=== PATIENT | female | born 1960 | race Two or more races ===

== ENCOUNTER 2017-02-01 07:12 | Day surgery (SDC) | payer MEDICAID ==
--- NOTE | 2017-01-27 16:34 | Pre-Procedure Note/Attestation ---
Pre-Procedure Note/Attestation Complete Prior to Procedure Planned Procedure: right Procedure Narrative: phaco with IOL Indications for Procedure Pre-Operative Diagnosis: cataract Attestation I attest that I discussed the nature of the procedure; its benefits; risks and complications; and alternatives (and the risks and benefits of such alternatives ), prior to the procedure, with the patient (or the patient's legal software support representative). I attest that, if there was a reasonable possibility of needing a blood transfusion, the patient (or the patient's legal software support representative) was given the [facility] standardized written summary, pursuant to the Fernando Lenoir Blood Safety Act ([place] Health and Safety Code # 1645, as amended). I attest that I re-evaluated the patient just prior to the surgery and that there has been no change in the patient's H&P, except as documented below: SHAYLEE HUERTA Jan 27, 2017 16:34
--- NOTE | 2017-01-27 16:45 | Opthalmology H&P ---
Ophthalmology H&P H&P Chief Complaint: decreased vision in right eye HPI Vision Affects Ability to: read, focus/use eyes together, manage personal affairs HPI Narrative blurry vision Exam Visual Acuity: OD: CF OS: CF Tension: OD: 12 OS: 11 Eye Exam: normal OU: external exam, palpebral fissure-width, marginal reflex distance, levator function, corneas, anterior chambers, findings: lens - OD: NS OS: NS, fundus exam - poor view Assessment/Plan Diagnosis: (1) Cataract Treatment Plan: cataract extraction w/ lens implant Goals of Treatment: improvement of vision, enhance quality of life Attestation Attestation The risks and benefits of the surgery as well as alternative procedures were explained to the patient in detail. SHAYLEE HUERTA Jan 27, 2017 16:45
[2017-02-01] VITALS (9 sets, daily range): BP systolic 117–139; BP diastolic 66–77
[~2017-02-01] VITALS: Ht 160 cm; Wt 73.9 kg
[~2017-02-01 07:12] MED LIST: Akten 3.5% 1ml Btl RIGHT EYE ONE; BSS 500ml btl ONE; Dexamethasone 4mg/ml vial ONE; EPINEPHrine 1mg/1ml Amp ONE; Ketorolac Tromethamine Opth 5ml Soln RIGHT EYE SCH; Maxitrol Opth Oint 3.5gm ONE; Pred Forte 1% Opth Susp 1ml ONE; Sterile Water 10ml Vial ONE
[2017-02-01] MEDS: Tropicamide 1% Opth 15ml Soln RIGHT EYE SCH ×3 (09:25→09:52)
[2017-02-01] MEDS: Cyclopentolate 1% Opth Sol 2ml RIGHT EYE SCH ×3 (09:25→09:52)
[2017-02-01] MEDS: Tobramycin Op Soln 0.3% 5ml RIGHT EYE SCH ×3 (09:26→09:52)
[2017-02-01] MEDS: Phenylephrine 10% Opth Soln 5ml RIGHT EYE SCH ×3 (09:30→09:52)
[2017-02-01] MEDS ORDERED: NS Irrig 1000ml ONE (10:00)
[2017-02-01] MEDS ORDERED: Sterile Water Irrig 1000ml IRRIG ONE (10:00)
[2017-02-01] MEDS ORDERED: Midazolam 2mg/2ml Inj ONE (10:00)
[2017-02-01] MEDS ORDERED: LR 1000ml ONE (10:00)
[2017-02-01] MEDS ORDERED: LASIX40 MG ORAL (10:09)
[2017-02-01] MEDS ORDERED: SPIRONOLACTONE50 MG ORAL (10:10)
[2017-02-01] MEDS ORDERED: FOLIC ACID1 MG ORAL (10:10)
[2017-02-01] MEDS ORDERED: Proparacaine 0.5% Opth Soln 15ml RIGHT EYE ONE (10:15)
[2017-02-01] MEDS ORDERED: LR 1000ml 1,000 ML IVLG SCH (10:17)
--- NOTE | 2017-02-01 10:24 | Anethesia Preoperative Eval ---
Anesthesia Pre-op PMH/ROS General Date of Evaluation: Feb 01, 2017 Time of Evaluation: 09:47 Anesthesiologist: Nallely ASA Score: ASA 3 Mallampati Score Class I : Soft palate, uvula, fauces, pillars visible Class II: Soft palate, uvula, fauces visible Class III: Soft palate, base of uvula visible Class IV: Only hard plate visible Mallampati Classification: Class II Surgeon: Barbara Diagnosis: Cataract right eye Surgical Procedure: Extraction of cataract with IOL Social History: alcohol use - Former Allergies: Coded Allergies: EGG (Verified Allergy, Severe, swelling; redness, 02/01/17) Past Medical History Cardiovascular: Denies: HTN, CAD, PR, valve dz, arrhythmia, other Pulmonary: Denies: asthma, COPD, MIROSLAVA, other Gastrointestinal/Genitourinary: Denies: GERD, CRI, ESRD, other Neurologic/Psychiatric: Denies: dementia, CVA, depression/anxiety, TIA, other Endocrine: Denies: DM, hypothyroidism, steroids, other HEENT: Reports: cataract (R), Denies: cataract (L), glaucoma, CAHUILLA (L), CAHUILLA (R), other Hematology/Immune: Denies: anemia, DVT, bleeding disorder, other Musculoskeletal/Integumentary: Denies: OA, RA, DJD, DDD, edema, other PMH Narrative: Cirrhosis, ascites, EtOH PSxH Narrative: C/S, Liver biopsy Anesthesia Pre-op Phys. Exam Physician Exam Last Vital Signs Date Time Temp Pulse Resp B/P (MAP) Pulse Ox O2 Delivery O2 Flow Rate FiO2 02/01/17 09:31 99.0 78 20 131/69 97 Room Air Constitutional: NAD Neurologic: CN 2-12 intact Cardiovascular: RRR, no M/R/G Respiratory: CTA Gastrointestinal: other Airway Exam Mallampati Score: Class II MO: full ROM: full Teeth: missing Dentures: upper Anesthesia Pre-op A/P Labs No contraindication Risk Assessment & Plan Assessment: Female with h/o cirrhosis, ascites and EtOH now for cataract extraction. Plan: MAC Status Change Before Surgery: No Pre-Antibiotics Drug: None ISIS PRUETT M.D. Feb 01, 2017 10:24
--- NOTE | 2017-02-01 10:25 | Immediate Post-Op Evaluation ---
Immediate Post-Op Evalulation Immediate Post-Op Evalulation Procedure: Extraction of cataract with IOL right eye Date of Evaluation: Feb 01, 2017 Time of Evaluation: 10:55 IV Fluids: 100 Blood Pressure Systolic: 139 Blood Pressure Diastolic: 73 Pulse Rate: 72 Respiratory Rate: 11 O2 Sat by Pulse Oximetry: 99 Temperature (Fahrenheit): 98.4 Pain Score (1-10): 0 Nausea: No Vomiting: No Complications No complication Patient Status: awake, patent, none Hydration Status: adequate Drug: None ISIS PRUETT M.D. Feb 01, 2017 10:25
[2017-02-01] MEDS ORDERED: fentaNYL 100 mcg/2 mL IV PRN (10:30)
--- NOTE | 2017-02-01 10:52 | 48 Hour Post Anesthesia Eval ---
Post Anesthesia Evaluation Procedure: Extraction of cataract with IOL right eye Date of Evaluation: Feb 01, 2017 Time of Evaluation: 11:15 Blood Pressure Systolic: 134 0: 72 Pulse Rate: 75 Respiratory Rate: 12 O2 Sat by Pulse Oximetry: 99 Airway: patent Nausea: No Vomiting: No Pain Intensity: 0 Hydration Status: adequate Cardiopulmonary Status: Stable Mental Status/LOC: patient returned to baseline Follow-up Care/Observations: As per surgery Post-Anesthesia Complications: No anesthetic complication Follow-up care needed: N/A ISIS PRUETT M.D. Feb 01, 2017 10:52
[2017-02-01] MEDS ORDERED: Povidone-Iodine 5% opth solution ONE (11:03)
[2017-02-01] MEDS ORDERED: Sodium Hyaluronate 14 mg/ml 0.85ml ONE (11:03)
[2017-02-01] MEDS ORDERED: BSS 15ml BTL ONE (13:01)
--- NOTE | 2017-02-01 13:07 | Brief Operative Note ---
Immediate Post Operative Note Operative Note Chief Complaint: blurry vision Pre-op Diagnosis: cataract, OD Procedure: phaco with IOL, OD Post-op Diagnosis: Psaeudophakia Post-op Diagnosis: same as pre-op Findings: consistent w/pre-op dx studies Surgeon: Barbara Anesthesiologist: Nallely, Anesthesia: MAC Specimen: none Complications: none Condition: stable Fluids: LR Estimated Blood Loss: none Drains: none Implant(s) used?: Yes SHAYLEE HUERTA Feb 01, 2017 13:07
--- NOTE | 2017-02-01 13:08 | Operative Note - PDOC ---
Operative Note Operative Note Date of Operation/Procedure: Feb 01, 2017 Chief Complaint: blurry vision Pre-op Diagnosis: cataract, OD Procedure: phaco with IOL, OD Post-op Diagnosis: Psaeudophakia Post-op Diagnosis: same as pre-op Operative Findings: consistent w/pre-op dx studies Surgeon: Barbara Anesthesiologist: Nallely, Anesthesia: MAC Specimen: none Complications: none Condition: stable Fluids: LR Estimated Blood Loss: none Drains: none Implant(s) used?: Yes Indications for Procedure cataract Description of Procedure This patient has been complaining visually significant cataract in the affected eye with the best corrected visual acuity under moderate glare conditions worse. The patient complains of difficulties with glare in performing activities of daily living and wants to manage personal affairs with comfort and accuracy and see well enough to move with safety at home and outdoors. The risks, benefits and alternatives of the procedure were discussed with the patient in the office prior to scheduling surgery. All questions from the patient were answered after the surgical procedure was explained in detail. The risks of the procedure as explained to the patient include, but are not limited to, pain, infection, bleeding, loss of vision, retinal detachment, need for further surgery, loss of lens nucleus, double vision, etc. Alternative procedures were discussed which include, to do nothing or seek a second opinion. Informed consent for this procedure was obtained from the patient. The patient was referred to a primary care physician for a cardiopulmonary clearance prior to surgery, after proper evaluation was done patient was properly scheduled for outpatient surgery. The patient was brought to the operating room where the anesthesiologist established I.V. lines and cardiac monitoring leads. Mild intravenous sedation was administered. Using a solution containing 0.75% Marcaine and 2% lidocaine with Wydase, a peribulbar block was administered to the eye. The patient was then prepared with a 5% solution of povidone-iodine to the conjunctival fornix and lashes, and a 10% solution of povidone-iodine to the lids and periorbital skin. The patient was then draped in the usual sterile fashion. A lid speculum was then placed in the operative eye. A keratome blade was then used to create a biplanar incision into the anterior chamber. Viscoelastics was then instilled into the anterior chamber. A capsulorrhexis was then fashioned with an utrata forceps then a BSS and a cannula were then used to hydrodissect and hydro delineate the lens nucleus. Paracentesis incision was made at 3 o'clock with sharp blade. The phacoemulsification unit, after being properly adjusted and tested, was then used to emulsify the nucleus then residual cortical material was aspirated with the irrigation and aspiration unit. Healon was then instilled into the anterior chamber. The corneal wound was then enlarged to the size of the optic with the jacinta keratome blade. The intraocular lens was then inspected for right power and size and thought to be satisfactory. Then the lens was gently placed in the capsular bag. Positioning within the capsular bag was confirmed by direct visualization. Optic centration was accomplished with a Sinskey hook. Viscoelastics was removed from the anterior chamber using the irrigation and aspiration unit. The corneal wound was then tested for leaks and none were found. The lid speculum were then removed. Sponge and needle counts were correct. An eye patch and shield were placed over the operative eye. The patient was taken to the recovery room in stable condition. There were no complications. The patient tolerated the procedure well. The patient was then transferred to the ambulatory surgery unit in stable and satisfactory condition , was given detailed written instructions and asked to follow up in the office the next day. Dictated & Transcribed: [facility] Johan SERNA JAMES Feb 01, 2017 13:08
== END 2017-02-01 12:20 | disposition home or self-care (01) ==
LOC: SUR 07:12
DX: H26.9 Unspecified cataract (principal); E78.5 Hyperlipidemia, unspecified; K74.60 Unspecified cirrhosis of liver; Z91.012 Allergy to eggs
CPT/HCPCS: 66984; J0171; J1100; J2250; J3370; J7120; V2632; Z7512; 94003; 94150; A4216

== ENCOUNTER 2017-04-16 06:05 | Day surgery (SDC) | payer MEDICAID ==
--- NOTE | 2017-04-15 12:07 | Pre-Procedure Note/Attestation ---
Pre-Procedure Note/Attestation Complete Prior to Procedure Planned Procedure: left Procedure Narrative: phaco with IOL, OS Indications for Procedure Pre-Operative Diagnosis: cataract Attestation I attest that I discussed the nature of the procedure; its benefits; risks and complications; and alternatives (and the risks and benefits of such alternatives ), prior to the procedure, with the patient (or the patient's legal loss prevention representative). I attest that, if there was a reasonable possibility of needing a blood transfusion, the patient (or the patient's legal loss prevention representative) was given the [facility] standardized written summary, pursuant to the Fernando Barron Blood Safety Act ([place] Health and Safety Code # 1645, as amended). I attest that I re-evaluated the patient just prior to the surgery and that there has been no change in the patient's H&P, except as documented below: SHAYLEE HUERTA Apr 15, 2017 12:07
--- NOTE | 2017-04-15 12:14 | Opthalmology H&P ---
Ophthalmology H&P H&P Chief Complaint: decreased vision in left eye HPI Vision Affects Ability to: read, focus/use eyes together, manage personal affairs HPI Narrative blurry vision Exam Visual Acuity: OD: 20/50 OS: CF Tension: OD: 8 OS: 10 Eye Exam: normal OU: external exam, palpebral fissure-width, marginal reflex distance, levator function, corneas, anterior chambers, findings: lens - OD: IOL OS: ns, fundus exam - poor view OS Assessment/Plan Diagnosis: (1) Cataract of left eye, hypermature senile Treatment Plan: cataract extraction w/ lens implant Goals of Treatment: improvement of vision, enhance quality of life Attestation Attestation The risks and benefits of the surgery as well as alternative procedures were explained to the patient in detail. SHAYLEE HUERTA Apr 15, 2017 12:13
[2017-04-16] VITALS (10 sets, daily range): BP systolic 104–128; BP diastolic 56–68
[~2017-04-16] VITALS: Ht 162.6 cm; Wt 74.8 kg
[~2017-04-16 06:05] MED LIST changes: -Akten 3.5% 1ml Btl RIGHT EYE ONE; -BSS 500ml btl ONE; -Dexamethasone 4mg/ml vial ONE; -EPINEPHrine 1mg/1ml Amp ONE; +FOLIC ACID1 MG ORAL; -Ketorolac Tromethamine Opth 5ml Soln RIGHT EYE SCH; +LASIX40 MG ORAL; -Maxitrol Opth Oint 3.5gm ONE; -Pred Forte 1% Opth Susp 1ml ONE; +SPIRONOLACTONE50 MG ORAL; -Sterile Water 10ml Vial ONE
[2017-04-16] MEDS ORDERED: BSS 15ml BTL ONE (06:41)
[2017-04-16] MEDS ORDERED: Bupivacaine 0.75% 30ml vial INJ ONE (06:44)
[2017-04-16] MEDS ORDERED: EPINEPHrine 1mg/1ml Amp ONE ×2 (06:44→07:40)
[2017-04-16] MEDS ORDERED: acetaZOLAMIDE 500mg Inj ONE (06:44)
[2017-04-16] MEDS ORDERED: Tetracaine 0.5% Opth 4ml Soln ONE (06:44)
[2017-04-16] MEDS ORDERED: Sodium Hyaluronate 14 mg/ml 0.85ml ONE (06:45)
[2017-04-16] MEDS ORDERED: Carbachol 0.01% Op Soln 1.5ml vial ONE (06:45)
[2017-04-16] MEDS ORDERED: Pilocarpine 2% Opth 15ml Soln ONE (06:45)
[2017-04-16] MEDS ORDERED: Lidocaine 2% MPF 5ml Vial INJ ONE (06:45)
[2017-04-16] MEDS ORDERED: Povidone-Iodine 5% opth solution ONE (06:46)
[2017-04-16] MEDS ORDERED: Cyclopentolate 1% Opth Sol 2ml RIGHT EYE SCH (07:00)
[2017-04-16] MEDS ORDERED: Akten 3.5% 1ml Btl LEFT EYE ONE (07:00)
[2017-04-16] MEDS ORDERED: Ketorolac Tromethamine Opth 5ml Soln RIGHT EYE SCH (07:00)
[2017-04-16] MEDS ORDERED: Phenylephrine 10% Opth Soln 5ml RIGHT EYE SCH (07:00)
[2017-04-16] MEDS ORDERED: Tetracaine 0.5% Opth 4ml Soln RIGHT EYE ONE (07:00)
[2017-04-16] MEDS ORDERED: Proparacaine 0.5% Opth Soln 15ml RIGHT EYE ONE (07:00)
[2017-04-16] MEDS ORDERED: Akten 3.5% 1ml Btl RIGHT EYE ONE (07:00)
[2017-04-16] MEDS ORDERED: Proparacaine 0.5% Opth Soln 15ml LEFT EYE ONE (07:00)
[2017-04-16] MEDS ORDERED: Tobramycin Op Soln 0.3% 5ml RIGHT EYE SCH (07:00)
[2017-04-16] MEDS ORDERED: Tropicamide 1% Opth 15ml Soln RIGHT EYE SCH (07:00)
[2017-04-16] MEDS: Phenylephrine 10% Opth Soln 5ml LEFT EYE SCH ×3 (07:29→07:41)
[2017-04-16] MEDS: Cyclopentolate 1% Opth Sol 2ml LEFT EYE SCH ×3 (07:30→07:41)
[2017-04-16] MEDS: Tobramycin Op Soln 0.3% 5ml LEFT EYE SCH ×3 (07:31→07:41)
[2017-04-16] MEDS: Tropicamide 1% Opth 15ml Soln LEFT EYE SCH ×3 (07:31→07:41)
[2017-04-16] MEDS: Ketorolac Tromethamine Opth 5ml Soln LEFT EYE SCH ×3 (07:32→07:41)
[2017-04-16] MEDS ORDERED: Maxitrol Opth Oint 3.5gm ONE (07:40)
[2017-04-16] MEDS ORDERED: Sterile Water Irrig 1000ml IRRIG ONE (07:40)
[2017-04-16] MEDS ORDERED: Pred Forte 1% Opth Susp 1ml ONE (07:40)
[2017-04-16] MEDS ORDERED: fentaNYL 100 mcg/2 mL IV ONE (07:40)
[2017-04-16] MEDS ORDERED: BSS 500ml btl ONE (07:40)
[2017-04-16] MEDS ORDERED: NS Irrig 1000ml ONE (07:40)
[2017-04-16] MEDS ORDERED: Midazolam 2mg/2ml Inj ONE (07:40)
[2017-04-16] MEDS ORDERED: LR 1000ml ONE (07:40)
[2017-04-16] MEDS ORDERED: Dexamethasone 4mg/ml vial ONE (07:40)
[2017-04-16] MEDS ORDERED: Sterile Water 10ml Vial ONE (07:40)
--- NOTE | 2017-04-16 08:43 | Immediate Post-Op Evaluation ---
Immediate Post-Op Evalulation Immediate Post-Op Evalulation Procedure: left eye cataract extraction with IOL Date of Evaluation: Apr 16, 2017 Time of Evaluation: 08:40 IV Fluids: 300 Blood Pressure Systolic: 117 Blood Pressure Diastolic: 56 Pulse Rate: 76 Respiratory Rate: 14 O2 Sat by Pulse Oximetry: 99 Temperature (Fahrenheit): 98.6 Pain Score (1-10): 0 Nausea: No Vomiting: No Complications none Patient Status: awake, reacts, patent Hydration Status: adequate Drug: none EDENRILLIONHINA CRNA Apr 16, 2017 08:42
--- NOTE | 2017-04-16 08:45 | Anethesia Preoperative Eval ---
Anesthesia Pre-op PMH/ROS General Date of Evaluation: Apr 16, 2017 Time of Evaluation: 07:40 Anesthesiologist: chan ASA Score: ASA 2 Mallampati Score Class I : Soft palate, uvula, fauces, pillars visible Class II: Soft palate, uvula, fauces visible Class III: Soft palate, base of uvula visible Class IV: Only hard plate visible Mallampati Classification: Class II Surgeon: cathy Diagnosis: cataract Surgical Procedure: cataract extraction Anesthesia History: none Social History: alcohol use Family History: no anesthesia problems Allergies: Coded Allergies: EGG (Verified Allergy, Severe, swelling; redness, 04/15/17) Medications: see eMAR Past Medical History Cardiovascular: Reports: HTN Pulmonary: Denies: asthma, COPD, MIROSLAVA, other Gastrointestinal/Genitourinary: Reports: other - liver cirrohosis, Denies: GERD, CRI, ESRD Neurologic/Psychiatric: Denies: dementia, CVA, depression/anxiety, TIA, other Endocrine: Denies: DM, hypothyroidism, steroids, other HEENT: Reports: cataract (L) Hematology/Immune: Denies: anemia, DVT, bleeding disorder, other Musculoskeletal/Integumentary: Denies: OA, RA, DJD, DDD, edema, other PSxH Narrative: cataract Anesthesia Pre-op Phys. Exam Physician Exam Last Vital Signs Date Time Temp Pulse Resp B/P (MAP) Pulse Ox O2 Delivery O2 Flow Rate FiO2 04/16/17 07:38 98.4 73 17 128/64 99 Room Air 98.4 Constitutional: NAD Neurologic: CN 2-12 intact Cardiovascular: RRR Respiratory: CTA Gastrointestinal: S/NT/ND Airway Exam Mallampati Classification 2 Mallampati Score: Class II MO: full Neck: normal TMD: 2fb Dentures: no upper, no lower Anesthesia Pre-op A/P Studies Pre-op Studies: EKG - sr Risk Assessment & Plan Plan: mac Status Change Before Surgery: No Pre-Antibiotics Drug: none HINA MARCUS CRNA Apr 16, 2017 08:45
--- NOTE | 2017-04-16 09:05 | 48 Hour Post Anesthesia Eval ---
Post Anesthesia Evaluation Procedure: left eye cataract extraction with IOL Date of Evaluation: Apr 16, 2017 Time of Evaluation: 09:05 Blood Pressure Systolic: 120 0: 73 Pulse Rate: 74 Respiratory Rate: 14 O2 Sat by Pulse Oximetry: 99 Airway: patent Nausea: No Vomiting: No Hydration Status: adequate Cardiopulmonary Status: stable Mental Status/LOC: patient returned to baseline Follow-up Care/Observations: na Post-Anesthesia Complications: none Follow-up care needed: N/A HINA MARCUS CRNA Apr 16, 2017 09:05
--- NOTE | 2017-04-16 11:47 | Brief Operative Note ---
Immediate Post Operative Note Operative Note Chief Complaint: blurry vision, OS Pre-op Diagnosis: cataract, OS Procedure: phaco with IOL, OS Post-op Diagnosis: pseudophakia Post-op Diagnosis: same as pre-op Findings: consistent w/pre-op dx studies Surgeon: Barbara Anesthesiologist: Chelly Anesthesia: MAC Specimen: none Complications: none Condition: stable Fluids: LR Estimated Blood Loss: none Drains: none Implant(s) used?: Yes SHAYLEE HUERTA Apr 16, 2017 11:47
--- NOTE | 2017-04-16 11:48 | Operative Note - PDOC ---
Operative Note Operative Note Date of Operation/Procedure: Apr 16, 2017 Chief Complaint: blurry vision, OS Pre-op Diagnosis: cataract, OS Procedure: phaco with IOL, OS Post-op Diagnosis: pseudophakia Post-op Diagnosis: same as pre-op Operative Findings: consistent w/pre-op dx studies Surgeon: Barbara Anesthesiologist: Chelly Anesthesia: MAC Specimen: none Complications: none Condition: stable Fluids: LR Estimated Blood Loss: none Drains: none Implant(s) used?: Yes Indications for Procedure cataract Description of Procedure This patient has been complaining visually significant cataract in the affected eye with the best corrected visual acuity under moderate glare conditions worse. The patient complains of difficulties with glare in performing activities of daily living and wants to manage personal affairs with comfort and accuracy and see well enough to move with safety at home and outdoors. The risks, benefits and alternatives of the procedure were discussed with the patient in the office prior to scheduling surgery. All questions from the patient were answered after the surgical procedure was explained in detail. The risks of the procedure as explained to the patient include, but are not limited to, pain, infection, bleeding, loss of vision, retinal detachment, need for further surgery, loss of lens nucleus, double vision, etc. Alternative procedures were discussed which include, to do nothing or seek a second opinion. Informed consent for this procedure was obtained from the patient. The patient was referred to a primary care physician for a cardiopulmonary clearance prior to surgery, after proper evaluation was done patient was properly scheduled for outpatient surgery. The patient was brought to the operating room where the anesthesiologist established I.V. lines and cardiac monitoring leads. Mild intravenous sedation was administered. The patient was then prepared with a 5% solution of povidone -iodine to the conjunctival fornix and lashes, and a 5% solution of povidone- iodine to the lids and periorbital skin. The patient was then draped in the usual sterile fashion. A lid speculum was then placed in the operative eye. A keratome blade was then used to create a biplanar incision into the anterior chamber. Viscoelastics was then instilled into the anterior chamber. A capsulorrhexis was then fashioned with an utrata forceps followed by hydrodissection and hydro delineation of the lens nucleus. Paracentesis incision was made at 3 o'clock with sharp blade. The phacoemulsification unit, after being properly adjusted and tested, was then used to emulsify the nucleus. Residual cortical material was aspirated with the irrigation and aspiration unit. Healon was then instilled into the anterior chamber. The corneal wound was then enlarged to the size of the optic with the jacinta keratome blade. The intraocular lens was then inspected for right power and size and thought to be satisfactory. Then the lens was gently placed in the capsular bag. Positioning within the capsular bag was confirmed by direct visualization. Optic centration was accomplished with a Sinskey hook. Viscoelastics was removed from the anterior chamber using the irrigation and aspiration unit. The corneal wound was then tested for leaks and none were found. The lid speculum were then removed. Sponge and needle counts were correct. An eye patch and shield were placed over the operative eye. The patient was taken to the recovery room in stable condition. There were no complications. The patient tolerated the procedure well. The patient was then transferred to the ambulatory surgery unit in stable and satisfactory condition , was given detailed written instructions and asked to follow up in the office the next day. SHAYLEE HUERTA Apr 16, 2017 11:48
== END 2017-04-16 12:30 | disposition home or self-care (01) ==
LOC: SUR 06:05
DX: H25.22 Age-related cataract, morgagnian type, left eye (principal); I10 Essential (primary) hypertension; K74.60 Unspecified cirrhosis of liver; Z91.012 Allergy to eggs
CPT/HCPCS: 66984; J0171; J1100; J2250; J3010; J3370; J7120; V2632; Z7512; 94003; 94150; A4216